=== PATIENT | female | born 1980 | race Caucasian/White ===

== ENCOUNTER → 2016-07-03 | Outpatient (CLI) | payer OTHER ==
[~2016-07-03] MED LIST: AMITIZA24 MICROGR PO; CYMBALTA60 MG PO; FLOMAX0.4 MG PO; KEPPRA500 MG PO; METAMUCIL CAPSU1 CAP PO; NAPROSYN500 MG PO; NITROBID2.5 MG PO; PERCOCET 5/31 TABLET PO; PLAQUENIL200 MG PO; PREVACID30 MG PO; PROBIOTIC1 EAC1 PO; PROMETHAZINE12.5 M1 PO; VALIUM10 MG PO; VICODIN,LORT1 TABLET PO; VIT D PO; ZOFRAN ODT4 MG PO
== END | disposition home or self-care (01) ==
LOC: NUC 10:50
DX: M89.8X8 Other specified disorders of bone, other site (principal)
CPT/HCPCS: 78315; A9503

== ENCOUNTER 2017-10-10 22:30 | Emergency (ER) | payer OTHER ==
[~2017-10-10] VITALS: Ht 152.4 cm; Wt 75.0 kg
[2017-10-11 00:02] VITALS: BP 90/52
== END 2017-10-11 00:03 | disposition home or self-care (01) ==
LOC: EME 22:30
DX: S82.831A Other fracture of upper and lower end of right fibula, initial encounter for closed fracture (principal); W10.9XXA Fall (on) (from) unspecified stairs and steps, initial encounter
CPT/HCPCS: 73610; 99281; 99283